=== PATIENT | male | born 1960 | race Caucasian/White ===

== ENCOUNTER → 2016-08-25 | Outpatient (CLI) | payer BC, OTHER | END | disposition home or self-care (01) | LOC: CFH 15:39 | PROVIDERS: ATTEND Nurse Practitioner Primary Care | DX: J44.9 Chronic obstructive pulmonary disease, unspecified (principal); R53.83 Other fatigue; E78.2 Mixed hyperlipidemia; E29.1 Testicular hypofunction; E55.9 Vitamin D deficiency, unspecified; I10 Essential (primary) hypertension; M25.562 Pain in left knee; R06.83 Snoring; J06.0 Acute laryngopharyngitis; L57.9 Skin changes due to chronic exposure to nonionizing radiation, unspecified; Z72.0 Tobacco use | CPT/HCPCS: 71020 ==

== ENCOUNTER → 2016-12-08 | Outpatient (CLI) | payer BC, OTHER ==
[~2016-12-08] MED LIST: REGADENOSON 0.4 MG/5 ML SYRINGE ONE
== END | disposition home or self-care (01) ==
LOC: CVU 09:42
PROVIDERS: ATTEND Internal Medicine
DX: I35.0 Nonrheumatic aortic (valve) stenosis (principal); I11.9 Hypertensive heart disease without heart failure; E78.5 Hyperlipidemia, unspecified; E78.00 Pure hypercholesterolemia, unspecified
CPT/HCPCS: 78452; 93017; 93306; A9502; J2785

== ENCOUNTER 2016-12-18 06:34 | Day surgery (SDC) | payer BC, OTHER ==
[2016-12-17 10:12] LABS: HEMATOCRIT 50.3 % (39.2-51.8); HEMOGLOBIN 17.5 g/dL (13.7-18.0); WHITE BLOOD COUNT 7.7 x10^3/uL (3.4-10)
[2016-12-17 10:39] LABS: ASPARTATE AMINO TRANSFERASE 41 U/L (15-37); BLOOD UREA NITROGEN 15 mg/dL (7-18)
[~2016-12-18] VITALS: Ht 175.3 cm; Wt 136.4 kg
[~2016-12-18 06:34] MED LIST changes: +AMLO10TA2 PO; +LISI-170 PO; -REGADENOSON 0.4 MG/5 ML SYRINGE ONE
[2016-12-18] MEDS ORDERED: HYDR-3245 PO (06:56)
[2016-12-18] MEDS ORDERED: ALBU18HF INH (06:56)
[2016-12-18] MEDS ORDERED: UMEC1DIS INH (06:56)
[2016-12-18] MEDS ORDERED: EZET10TA18 PO (06:56)
[2016-12-18] MEDS ORDERED: TEST100V2 IM (06:56)
[2016-12-18] MEDS ORDERED: ASPIRIN 325 MG TABLET EC ONE (07:08)
[2016-12-18] MEDS ORDERED: VERAPAMIL 2.5 MG/ML, 2ML ONE ×2 (07:14→07:49)
[2016-12-18] MEDS ORDERED: MIDAZOLAM 1 MG/ML, 5ML ONE ×2 (07:14→07:49)
[2016-12-18] MEDS ORDERED: FENTANYL PF 100 MCG/2ML ONE ×2 (07:14→07:49)
[2016-12-18] MEDS ORDERED: HEPARIN 1,000 UNITS/ML, 10ML ONE ×2 (07:15→07:50)
[2016-12-18] MEDS ORDERED: NITROGLYCERIN 5 MG/ML, 10ML ONE (07:15)
[2016-12-18] MEDS ORDERED: LIDOCAINE 2%, 20ML ONE ×2 (07:15→07:50)
[2016-12-18] MEDS ORDERED: PRASUGREL 10 MG TABLET ONE (07:15)
[2016-12-18] MEDS ORDERED: BIVALIRUDIN 250 MG ONE ×2 (07:21→07:50)
[2016-12-18] MEDS ORDERED: BISACODYL 10 MG SUPP PR PRN (07:30)
[2016-12-18] MEDS ORDERED: ONDANSETRON 2MG/ML, 2ML IVPush PRN (07:30)
[2016-12-18] MEDS ORDERED: ACETAMINOPHEN 325 MG TABLET PO PRN (07:30)
[2016-12-18] MEDS ORDERED: ZOLPIDEM 5MG TABLET PO PRN (07:30)
[2016-12-18] MEDS ORDERED: BISACODYL 5 MG EC TABLET PO PRN (07:30)
[2016-12-18] MEDS ORDERED: ASPIRIN 325 MG TABLET EC PO ONE (07:30)
[2016-12-18] MEDS ORDERED: TICAGRELOR 90 MG TABLET ONE (07:49)
== END 2016-12-18 11:12 | disposition home or self-care (01) ==
LOC: CACL 06:34
PROVIDERS: ATTEND Internal Medicine Cardiovascular Disease
DX: I42.8 Other cardiomyopathies (principal); I10 Essential (primary) hypertension; E78.2 Mixed hyperlipidemia; J44.9 Chronic obstructive pulmonary disease, unspecified; F12.10 Cannabis abuse, uncomplicated; F17.290 Nicotine dependence, other tobacco product, uncomplicated; Z72.89 Other problems related to lifestyle; Z79.899 Other long term (current) drug therapy; Z82.49 Family history of ischemic heart disease and other diseases of the circulatory system
CPT/HCPCS: 36415; 80053; 85025; 85610; 85730; 93458; 99156; C1894; J1644; J2250; J3010; J3490; Q9967; J0583

== ENCOUNTER → 2017-09-17 | Outpatient (CLI) | payer BC, OTHER ==
[~2017-09-17] MED LIST changes: +ALBU18HF INH; +EZET10TA18 PO; +HYDR-3245 PO; +TEST100V2 IM; +UMEC1DIS INH
== END | disposition home or self-care (01) ==
LOC: CVU 08:04
PROVIDERS: ATTEND Internal Medicine Cardiovascular Disease
DX: I11.9 Hypertensive heart disease without heart failure (principal); I70.0 Atherosclerosis of aorta; E78.5 Hyperlipidemia, unspecified; Z87.891 Personal history of nicotine dependence
CPT/HCPCS: 93306

== ENCOUNTER 2019-02-13 06:33 | Outpatient (CLI) | payer BC ==
[~2019-02-13 06:33] MED LIST changes: -AMLO10TA2 PO; +AMLO10TA8 PO; -EZET10TA18 PO; +EZET10TA70 PO
== END 2019-02-13 23:59 | disposition home or self-care (01) ==
LOC: CVU 06:33
PROVIDERS: ATTEND Internal Medicine Cardiovascular Disease
DX: I35.1 Nonrheumatic aortic (valve) insufficiency (principal); R94.31 Abnormal electrocardiogram [ECG] [EKG]; I10 Essential (primary) hypertension; J44.9 Chronic obstructive pulmonary disease, unspecified; Z87.891 Personal history of nicotine dependence
CPT/HCPCS: 93306